=== PATIENT | female | born 1965 | race Caucasian/White ===

== ENCOUNTER 2021-01-05 09:21 | Day surgery (SDC) | payer OTHER ==
[~2021-01-05] VITALS: Ht 154.9 cm; Wt 74.4 kg
[~2021-01-05 09:21] MED LIST: CLINDAMYCIN 600 MG in IV 1 EA IV ONE; D31000TA2 PO; LIDOCAINE 1% MDV 20ML VIAL SQ PRN; LR 1,000 ML IV ONE; PROBCAP14 PO; TRAZ-252 PO; [UNRECOGNIZED DRUG - OTHER] PO
[2021-01-05] MEDS ORDERED: ACETAMINOPHEN 1000MG 100ML IV BTL (OFIRMEV) (J0131 PER 10MG) As Ordered ONE (10:27)
[2021-01-05] MEDS ORDERED: ONDANSETRON 4MG/2ML VIAL As Ordered ONE (10:27)
[2021-01-05] MEDS ORDERED: KETOROLAC 60MG 2ML VIAL As Ordered ONE (10:27)
[2021-01-05] MEDS ORDERED: LIDOCAINE 2% 100MG/5ML SDV (FOR ANES.) As Ordered ONE (10:27)
[2021-01-05] MEDS ORDERED: dexameTHASONE 4 MG/ML 1ML VIAL (J1100 PER 1MG) As Ordered ONE ×2 (10:27→11:44)
[2021-01-05] MEDS ORDERED: propofoL 500 MG/50 ML VIAL As Ordered ONE (10:28)
[2021-01-05] MEDS ORDERED: fentaNYL 100 MCG/2 ML INJECTION (J3010) As Ordered ONE (10:28)
[2021-01-05] MEDS ORDERED: MIDAZOLAM INJ 2MG/2ML VIAL (J2250 PER 1MG) As Ordered ONE (10:28)
[2021-01-05] MEDS ORDERED: BUPIVACAINE HCL 0.5% 10ML VIAL As Ordered ONE (11:24)
[2021-01-05] MEDS ORDERED: LIDOCAINE 1% MDV 20ML VIAL As Ordered ONE (11:24)
[2021-01-05] MEDS ORDERED: HYDR-3713 PO (12:35)
[2021-01-05 13:05] VITALS: BP 143/90
--- NOTE | 2021-01-05 15:07 | RO ---
OPERATIVE NOTE DATE OF OPERATION: 01/05/2021 PREOPERATIVE DIAGNOSIS: Left foot bunion. POSTOPERATIVE DIAGNOSIS: Left foot bunion. PROCEDURE: Left foot bunionectomy, 1st metatarsal osteotomy. SURGEON: Joni Cleveland DPM CRUCIBLE PACKER: None. ANESTHESIA: Monitored anesthesia care, preop injection of 17 mL of 1:1 mixture of 1% Lidocaine plain and 0.5% Marcaine plain. ESTIMATED BLOOD LOSS: Minimal. MATERIALS: Arthrex 3.5 headless compression screw, 3-0 and 4-0 Vicryl, 4-0 nylon. INJECTABLES: 7 mL 1% Lidocaine plain. COMPLICATIONS: None. CONDITION: Stable. INDICATIONS: Karmen Martines is a 55-year-old female who presents to [facility] with complaints of painful bunion. She had previous bunionectomy but had recurrence. She presents today for surgical revision. Patient side and site were identified and marked in the preoperative holding area. Consent was reviewed and obtained. The risks, complications, alternatives to the procedure were explained to the patient in detail and all questions were answered. DESCRIPTION OF PROCEDURE: The patient was brought to the operating room and placed on the operating room table in the supine position. Monitored anesthesia care was delivered by the anesthesia team. Preop injection of 17 mL of 1:1 mixture of 1% Lidocaine plain and 0.5% Marcaine plain were injected into the left foot. The left foot was prepped and draped in normal sterile fashion. Tourniquet was applied to the left ankle and inflated to 250 mmHg. Dorsal medial incision was made through the previous scar, carried through with #15 blade. Dissection was carried until the 1st metatarsophalangeal capsule was identified. There was significant scar tissue in the area. T-capsulotomy was performed exposing the metatarsal head. A lateral release was performed releasing the adductor tendon, lateral capsule and sesamoidal ligaments. McGlamry elevator was used to release the plantar structures. The medial eminence of metatarsal head was resected with sagittal saw. An osteotomy was performed in the metatarsal head transposing it laterally. This was fixated with Arthrex 3.5 headless compression screw. Remaining bone ledge was resected with sagittal saw and smoothed with a rasp. It was irrigated with normal saline. Capsular repair was performed with 3-0 Vicryl, subcutaneous closure with 4-0 Vicryl, skin closure with 4-0 nylon. 1 mL of Decadron was injected. Sterile dressing was applied. Tourniquet was deflated. The patient was brought to PACU with vital signs stable, neurovascular status intact. She will be partial weightbearing. She will follow up in our office in two days.
== END 2021-01-05 13:25 | disposition home or self-care (01) ==
LOC: M SDC 09:21
PROVIDERS: ATTEND Podiatrist Foot & Ankle Surgery
DX: M20.12 Hallux valgus (acquired), left foot (principal); M21.612 Bunion of left foot; Z88.0 Allergy status to penicillin; Z79.899 Other long term (current) drug therapy; Z87.891 Personal history of nicotine dependence
CPT/HCPCS: 28296; 88300; C1713; J0131; J1100; J1885; J2250; J2405; J3010

== ENCOUNTER 2025-07-08 07:12 | Day surgery (SDC) | payer OTHER ==
[~2025-07-08] VITALS: Ht 154.9 cm; Wt 72.0 kg
[~2025-07-08 07:12] MED LIST changes: -CLINDAMYCIN 600 MG in IV 1 EA IV ONE; -D31000TA2 PO; +HYDR-3713 PO; +IBUP200C29 PO; -LIDOCAINE 1% MDV 20ML VIAL SQ PRN; +LISI10TA22 PO; -LR 1,000 ML IV ONE; +MILK175T PO; +VITA100093 PO
[2025-07-08] MEDS ORDERED: LIDOCAINE 2% 100 MG/5 ML SDV (FOR ANES.) As Ordered ONE (08:00)
[2025-07-08 08:37] VITALS: TEMP 96.9
[2025-07-08 08:50] VITALS: BP 129/69; O2SAT 98
== END 2025-07-08 09:10 | disposition home or self-care (01) ==
LOC: M OPP 07:12
PROVIDERS: ATTEND Internal Medicine Gastroenterology
DX: Z12.11 Encounter for screening for malignant neoplasm of colon (principal); K63.5 Polyp of colon; K64.0 First degree hemorrhoids; Z88.0 Allergy status to penicillin; Z79.899 Other long term (current) drug therapy; F17.290 Nicotine dependence, other tobacco product, uncomplicated